=== PATIENT | male | born 1980 | race Caucasian/White ===

== ENCOUNTER 2016-06-30 18:35 | Emergency (ER) | payer OTHER | END 2016-06-30 20:05 | disposition home or self-care (01) | LOC: ER 18:35 | DX: K21.9 Gastro-esophageal reflux disease without esophagitis (principal); I88.9 Nonspecific lymphadenitis, unspecified; F32.9 Major depressive disorder, single episode, unspecified; F41.9 Anxiety disorder, unspecified; F17.210 Nicotine dependence, cigarettes, uncomplicated | CPT/HCPCS: 36415 ==